=== PATIENT | female | born 2000 | race Caucasian/White ===

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

== ENCOUNTER → 2021-03-03 | Outpatient (CLI) | payer OTHER ==
[~2021-03-03] MED LIST: COLACE 100MG C100 MG PO
[2021-03-03 12:04] LABS: GAMMA GLUTAMYL TRANSPEPTIDASE 62 U/L (7-64)
== END ==
LOC: LAB 10:37
PROVIDERS: Dermatology
DX: R79.9 Abnormal finding of blood chemistry, unspecified (principal); R53.83 Other fatigue; R63.4 Abnormal weight loss
CPT/HCPCS: 36415; 82465; 82977; 84478; 84703

== ENCOUNTER → 2021-03-31 | Outpatient (CLI) | payer OTHER ==
[2021-03-31 13:04] LABS: HEMOGLOBIN 13.3 gm/dl (12.3-15.3); RED BLOOD COUNT 4.07 M/UL (4.00-5.10)
[2021-03-31 13:23] LABS: GAMMA GLUTAMYL TRANSPEPTIDASE 98 U/L (7-64)
== END ==
LOC: LAB 11:29
PROVIDERS: Dermatology
DX: L70.9 Acne, unspecified (principal)
CPT/HCPCS: 36415; 82465; 82977; 84478; 85027